=== PATIENT | female | born 1945 | race Caucasian/White ===

== ENCOUNTER 2023-12-06 10:40 | Inpatient (IN) ==
[2023-12-06] MEDS: Ondansetron 4 mg VIAL 2 MG/ML 2 ml VIAL IV ONE (12:20)
[2023-12-06] MEDS: Morphine 2 MG/ML SYRINGE IV ONE (12:20)
[2023-12-06 12:55] LABS: ABS Basophils 0.1 10^3/uL (0.0-0.1); ABS Eosinophils 0.1 10^3/uL (0.0-0.5); ABS Lymphocytes 1.5 10^3/uL (1.0-4.8); ABS Monocytes 0.6 10^3/uL (0.0-0.9); ABS Neutrophils 9.8 10^3/uL (1.5-7.6); ABS Nucleated RBC 0.01 10^3/ul; Eosinophil % 1.1 %; Hematocrit 23.9 % (35-45); Hemoglobin 7.5 g/dL (11.5-14.3); Lymphocyte % 12.1 %; Mean Corpuscular Hemoglobin 21.8 pg (27-33); Mean Corpuscular Hgb Conc 31.5 g/dL (31-36); Mean Corpuscular Volume 69.1 fL (80-97); Mean Platelet Volume 7.3 fL (7.5-11.2); Platelet Count 284 10^3/uL (150-450); Red Blood Count 3.45 10^6/uL (3.63-4.92); Red Cell Distribution Width 19.2 % (12-17); White Blood Count 12.1 10^3/uL (3.8-11.8)
[2023-12-06 13:23] LABS: ALT 13 U/L (7-52); AST 16 U/L (13-39); Albumin 3.9 g/dL (3.2-5.2); Albumin/Globulin Ratio 1.3 (1-3); Alkaline Phosphatase 59 U/L (35-149); Anion Gap 10 mmol/L (2-16); Blood Urea Nitrogen 18 mg/dL (6-24); CO2 Carbon Dioxide 27 mmol/L (22-32); Chloride 102 mmol/L (101-111); Creatinine, Serum 0.95 mg/dL (0.51-0.95); Glucose 210 mg/dL (70-100); Potassium 4.1 mmol/L (3.5-5.0); Sodium 139 mmol/L (135-145); Total Bilirubin 0.4 mg/dL (0.2-1.0); Total Protein 6.9 g/dL (6.4-8.9); eGFR CKD-EPI 61.7 (>60)
[2023-12-06] MEDS: Acetaminophen IV 1 GM/100ML 1,000 MG/100 ML BAG IV ONE (13:34)
[2023-12-06] MEDS ORDERED: Polyethylene Glycol 3350 17 GM PACKET PO PRN (13:39)
[2023-12-06] MEDS ORDERED: Senna TAB 8.6 mg TAB PO PRN (13:39)
[2023-12-06] MEDS ORDERED: Dextrose 50% Syringe 50 ml 25 GM/50 ML SYRINGE IV PUSH PRN (15:07)
[2023-12-06 16:47] LABS: % Iron Saturation 4 % (15-55); .Transferrin 363 mg/dL (203-362); Iron < 20 ug/dL (50-212); Total Iron Binding Capacity 508 mcg/dL (250-450); Unsaturated Iron Binding 488 ug/dL
[2023-12-06 17:09] LABS: Ferritin 6.7 ng/mL (11-307)
[2023-12-06 17:15] LABS: Vitamin D Total 25(OH) 32.6 ng/mL (20-50)
[2023-12-06] MEDS: Morphine 2 MG/ML SYRINGE IV PRN (17:39)
[2023-12-06] MEDS ORDERED: Lidocaine 1% w EPI 1:200,000 SDV 30 ML VIAL ONE (18:29)
[2023-12-06] MEDS: Enoxaparin 40 MG/0.4 ML SYR SUBCUT SCH (21:33)
[2023-12-07 00:58] LABS: ABS Lymphocytes 2.5 10^3/uL (1.0-4.8); ABS Monocytes 0.9 10^3/uL (0.0-0.9); ABS Neutrophils 5.1 10^3/uL (1.5-7.6); ABS Nucleated RBC 0.01 10^3/ul; Eosinophil % 0.3 %; Hematocrit 23.5 % (35-45); Hemoglobin 7.5 g/dL (11.5-14.3); Lymphocyte % 29.1 %; Mean Corpuscular Hemoglobin 22.5 pg (27-33); Mean Corpuscular Hgb Conc 31.8 g/dL (31-36); Mean Corpuscular Volume 70.6 fL (80-97); Mean Platelet Volume 7.1 fL (7.5-11.2); Nucleated Red Blood Cells % 0.1 %/100WBC (0.0-0.8); Platelet Count 245 10^3/uL (150-450); Red Blood Count 3.33 10^6/uL (3.63-4.92); Red Cell Distribution Width 19.7 % (12-17); White Blood Count 8.5 10^3/uL (3.8-11.8)
[2023-12-07] MEDS: Polyethylene Glycol 3350 17 GM PACKET PO SCH (08:03)
[2023-12-07] MEDS ORDERED: Lidocaine 2% PF 5 ML VIAL ONE (08:11)
[2023-12-07] MEDS ORDERED: fentaNYL 250 mcg/5 ml 50 MCG/ML 5 ml VIAL (250 MCG) ONE (08:11)
[2023-12-07] MEDS ORDERED: Propofol 10 MG/ML 20 ML BTL ONE (08:12)
[2023-12-07] MEDS ORDERED: Rocuronium 50 mg VIAL 10 mg/ml 5 ml VIAL (50 mg) ONE (08:12)
[2023-12-07] MEDS ORDERED: Phenylephrine IV 10 MG/ML 1 ml VIAL ONE (08:14)
[2023-12-07] MEDS ORDERED: Albumin Human 5% 12.5 GM/250 ML BTL IV ONE (08:46)
[2023-12-07] MEDS ORDERED: ceFAZolin 2 GM PREMIX 2 GM/50 ML BAG ONE (09:08)
[2023-12-07 09:12] LABS: ABS Lymphocytes 2.3 10^3/uL (1.0-4.8); ABS Neutrophils 7.2 10^3/uL (1.5-7.6); Eosinophil % 0.3 %; Hematocrit 25.9 % (35-45); Hemoglobin 8.6 g/dL (11.5-14.3); Lymphocyte % 22.1 %; Mean Corpuscular Hemoglobin 23.6 pg (27-33); Mean Corpuscular Hgb Conc 33.1 g/dL (31-36); Mean Corpuscular Volume 71.3 fL (80-97); Mean Platelet Volume 7.1 fL (7.5-11.2); Platelet Count 244 10^3/uL (150-450); Red Blood Count 3.63 10^6/uL (3.63-4.92); Red Cell Distribution Width 19.7 % (12-17); White Blood Count 10.6 10^3/uL (3.8-11.8)
[2023-12-07 09:50] LABS: Calcium 8.3 mg/dL (8.6-10.3); Creatinine, Serum 0.97 mg/dL (0.51-0.95); Potassium 4.1 mmol/L (3.5-5.0); eGFR CKD-EPI 60.2 (>60)
[2023-12-07] MEDS ORDERED: ceFAZolin VIAL VIAL ONE (10:38)
[2023-12-07] MEDS ORDERED: HYDROmorphone 0.5 MG/0.5 ML SYRINGE ONE (10:46)
[2023-12-07] MEDS ORDERED: Metoclopramide 5 MG/ML VIAL (10 mg) ONE (10:51)
[2023-12-07] MEDS ORDERED: fentaNYL 100 mcg/2 ml 50 MCG/ML VIAL IV PRN (10:56)
[2023-12-07] MEDS ORDERED: HYDROmorphone 1 MG/1 ML SYRINGE IV PRN (10:56)
[2023-12-07] MEDS ORDERED: Naloxone 0.4 mg VIAL 0.4 mg/ml 1 ml VIAL IV PRN (10:56)
[2023-12-07] MEDS ORDERED: Ondansetron 4 mg VIAL 2 MG/ML 2 ml VIAL IV PRN (10:56)
[2023-12-07] MEDS ORDERED: Acetaminophen IV 1 GM/100ML 1,000 MG/100 ML BAG IV ONE (11:01)
[2023-12-07] MEDS ORDERED: Calcium CHLORIDE 10% SYRINGE 1 GM/10 ML ONE (13:23)
[2023-12-07] MEDS ORDERED: Ondansetron 4 mg VIAL 2 MG/ML 2 ml VIAL ONE (14:16)
[2023-12-07] MEDS: Metoclopramide 5 MG/ML VIAL (10 mg) IV SLOW PU ONE (14:27)
[2023-12-07 16:43] LABS: Hematocrit 32.9 % (35-45); Hemoglobin 10.2 g/dL (11.5-14.3)
[2023-12-07] MEDS: Lactated Ringers 1000 ml BAG 1,000 ML IV SCH (17:06)
[2023-12-07] MEDS: ceFAZolin 2 GM PREMIX 2 GM/50 ML BAG IV SCH ×2 (18:00→20:39)
[2023-12-07 21:44] LABS: Hematocrit 30.7 % (35-45); Hemoglobin 9.9 g/dL (11.5-14.3)
[2023-12-08 05:40] LABS: ABS Lymphocytes 2.4 10^3/uL (1.0-4.8); ABS Monocytes 1.2 10^3/uL (0.0-0.9); Eosinophil % 0.1 %; Hematocrit 27.7 % (35-45); Hemoglobin 9.1 g/dL (11.5-14.3); Lymphocyte % 19.1 %; Mean Corpuscular Hemoglobin 25.1 pg (27-33); Mean Corpuscular Volume 76.1 fL (80-97); Mean Platelet Volume 7.9 fL (7.5-11.2); Platelet Count 173 10^3/uL (150-450); Red Blood Count 3.64 10^6/uL (3.63-4.92); Red Cell Distribution Width 19.5 % (12-17); White Blood Count 12.7 10^3/uL (3.8-11.8)
[2023-12-08 05:59] LABS: Calcium 8.5 mg/dL (8.6-10.3); Creatinine, Serum 1.76 mg/dL (0.51-0.95); Potassium 4.7 mmol/L (3.5-5.0); eGFR CKD-EPI 29.4 (>60)
[2023-12-08] MEDS: Lactated Ringers 1000 ml BAG 1,000 ML IV SCH (07:56)
[2023-12-09 07:31] LABS: Hematocrit 23.5 % (35-45); Hemoglobin 7.8 g/dL (11.5-14.3); Mean Platelet Volume 7.3 fL (7.5-11.2); Platelet Count 190 10^3/uL (150-450)
[2023-12-09 08:12] LABS: Creatinine, Serum 1.46 mg/dL (0.51-0.95); Potassium 4.1 mmol/L (3.5-5.0); eGFR CKD-EPI 36.8 (>60)
[2023-12-09] MEDS: Ferric Gluconate IV 250 MG in NS 0.9% 250 ml 200 ML IVPB SCH (08:46)
[2023-12-09] MEDS: Enoxaparin 40 MG/0.4 ML SYR SUBCUT SCH ×2 (12:22→19:55)
[2023-12-10 06:29] LABS: Hematocrit 22.8 % (35-45); Hemoglobin 7.3 g/dL (11.5-14.3); Mean Platelet Volume 7.1 fL (7.5-11.2); Platelet Count 212 10^3/uL (150-450)
[2023-12-10 06:52] LABS: Calcium 8.1 mg/dL (8.6-10.3); Creatinine, Serum 1.08 mg/dL (0.51-0.95); Potassium 3.9 mmol/L (3.5-5.0); eGFR CKD-EPI 52.9 (>60)
[2023-12-11 08:22] LABS: Hematocrit 22.9 % (35-45); Hemoglobin 7.3 g/dL (11.5-14.3); Mean Platelet Volume 7.1 fL (7.5-11.2); Platelet Count 212 10^3/uL (150-450)
[2023-12-11 09:36] LABS: Calcium 8.5 mg/dL (8.6-10.3); Creatinine, Serum 0.95 mg/dL (0.51-0.95); Potassium 3.7 mmol/L (3.5-5.0); eGFR CKD-EPI 61.7 (>60)
[2023-12-12 06:26] LABS: Hematocrit 20.7 % (35-45); Hemoglobin 6.8 g/dL (11.5-14.3)
[2023-12-13 07:11] LABS: Calcium 8.2 mg/dL (8.6-10.3); Creatinine, Serum 0.89 mg/dL (0.51-0.95); Hematocrit 26.1 % (35-45); Hemoglobin 8.4 g/dL (11.5-14.3); Mean Corpuscular Hemoglobin 26.3 pg (27-33); Mean Corpuscular Hgb Conc 32.3 g/dL (31-36); Mean Corpuscular Volume 81.3 fL (80-97); Mean Platelet Volume 7.6 fL (7.5-11.2); Platelet Count 181 10^3/uL (150-450); Potassium 3.9 mmol/L (3.5-5.0); Red Blood Count 3.21 10^6/uL (3.63-4.92); Red Cell Distribution Width 19.8 % (12-17); White Blood Count 11.3 10^3/uL (3.8-11.8); eGFR CKD-EPI 66.7 (>60)
[2023-12-14 08:50] LABS: Hematocrit 24.9 % (35-45); Hemoglobin 8.1 g/dL (11.5-14.3); Mean Corpuscular Hemoglobin 25.7 pg (27-33); Mean Corpuscular Hgb Conc 32.4 g/dL (31-36); Mean Corpuscular Volume 79.2 fL (80-97); Platelet Count 254 10^3/uL (150-450); Red Blood Count 3.14 10^6/uL (3.63-4.92); Red Cell Distribution Width 19.9 % (12-17); White Blood Count 10.7 10^3/uL (3.8-11.8)
[2023-12-14 15:02] VITALS: BP 114/72
== END 2023-12-14 15:57 | DRG 480 ==
LOC: ED 10:40 → EDHOLD 10:40 → SSU 15:54 → SUATTDRO 12-07 13:40
PROVIDERS: ADMIT Internal Medicine; ATTEND Student in an Organized Health Care Education/Training Program